=== PATIENT | male | born 1955 | race African-American/Black ===

== ENCOUNTER 2018-03-11 23:11 | Emergency (ER) | payer MEDICAID ==
[~2018-03-11] VITALS: Ht 170.2 cm; Wt 69.0 kg
[~2018-03-11 23:11] MED LIST: ALBU2.5V13 IH; CARVEDILOL PO; ECOTRIN PO; FERR-63 PO; FOLI-43 PO; FURO-152 PO; GABA-533 PO; INSU100I24 SQ; KDUR20 PO; LISI-186 PO; METF-416 PO; MONT10TA21 PO; NVLG73 SUBCUT; TERB250T51 PO
[2018-03-12] MEDS ORDERED: ASPIRIN 81MG TABLET PO NR
[2018-03-12 00:20] LABS: BASOPHILS % 0.4 % (0.0-2.0); EOSINOPHILS % 0.7 % (0.0-5.0); HEMATOCRIT. 40.2 % (42.0-52.0); HEMOGLOBIN. 12.9 g/dL (14.0-18.0); LYMPHOCYTES % 18.6 % (20.0-50.0); MEAN CORPUSCULAR VOLUME 90.4 fL (80.0-94.0); MONOCYTES % 7.8 % (2.0-8.0); NEUTROPHILS % 72.5 % (40.0-76.0); PLATELET 198 x1000/uL (130-400); RED BLOOD CELL COUNT 4.45 mill/uL (4.7-6.1); RED CELL DISTRIBUTION WIDTH 16.3 % (11.6-14.6)
[2018-03-12 00:27] LABS: CHLORIDE 106 mEq/L (98-107)
[2018-03-12 00:29] LABS: PARTIAL THROMBOPLASTIN TIME 24.5 sec (23.4-31.0); PROTHROMBIN TIME 10.5 sec (9.1-11.1)
[2018-03-12 01:24] LABS: OPIATES URINE SCREEN PRESUMTIVE POSITIVE (NEGATIVE); PHENCYCLIDINE URINE SCREEN NEGATIVE (NEGATIVE)
[2018-03-12 01:25] LABS: *AMPHETAMINES SCREEN URINE NEGATIVE (NEGATIVE); *BARBITURATES SCREEN URINE NEGATIVE (NEGATIVE); *BENZODIAZEPINES SCREEN URINE NEGATIVE (NEGATIVE); *COCAINE SCREEN URINE PRESUMTIVE POSITIVE (NEGATIVE); CANNABINOID URINE SCREEN NEGATIVE (NEGATIVE); METHADONE URINE SCREEN NEGATIVE (NEGATIVE)
[2018-03-12 04:15] VITALS: BP 156/101
== END 2018-03-12 04:25 | disposition left against medical advice (07) ==
LOC: ER 23:11 → EDUNIT# 23:11 → EDBD 23:11 → ER 03-12 04:25
DX: I21.4 Non-ST elevation (NSTEMI) myocardial infarction (principal); T82.897A Other specified complication of cardiac prosthetic devices, implants and grafts, initial encounter; F14.10 Cocaine abuse, uncomplicated; Y71.8 Miscellaneous cardiovascular devices associated with adverse incidents, not elsewhere classified; Y92.89 Other specified places as the place of occurrence of the external cause
CPT/HCPCS: 36415; 71045; 80305; 83880; 84484; 93005; 99284